=== PATIENT | female | born 1970 | race Caucasian/White ===

== ENCOUNTER 2017-11-23 10:58 | Emergency (ER) | payer MEDICAID, OTHER ==
[2017-11-23 10:58] VITALS: BMI 27.3
[2017-11-23 11:20] VITALS: TEMP 99.1; O2SAT 99
[2017-11-23 11:40] LABS: HCG,QUALITATIVE URINE NEGATIVE (NEGATIVE)
[2017-11-23 11:43] LABS: SQUAMOUS EPITHIAL 3 /hpf (0-5); URINE BACTERIA RARE (<OCC); URINE BILIRUBIN NEGATIVE (NEGATIVE); URINE BLOOD 2+ (NEGATIVE); URINE CLARITY Hazy (Clear); URINE COLOR Yellow (YELLOW); URINE GLUCOSE (UA) NORMAL (Normal); URINE LEUKOCYTE ESTERASE 3+ Leu/uL (Negative); URINE PROTEIN 1+ mg/dL (NEGATIVE); URINE UROBILINOGEN NORMAL mg/dL (0.2-1.0); WBC CLUMPS FEW /hpf
--- NOTE | 2017-11-23 12:21 | CT ---
Date of service: 11/23/2017 PROCEDURE: CT Abdomen and Pelvis. HISTORY: RIGHT FLANK PAIN R/O KIDNEY STONE COMPARISON: No prior study available for comparison TECHNIQUE: Contiguous axial images of the abdomen and pelvis.. Coronal and Sagittal reformats generated. Radiation dose: Total exam DLP = 495.03 mGy-cm. This CT exam was performed using one or more of the following dose reduction techniques: Automated exposure control, adjustment of the mA and/or kV according to patient size, and/or use of iterative reconstruction technique. FINDINGS: LOWER THORAX: Small calcified granuloma right posterior sulcus. Some minor linear scarring changes also seen in the left lung base and lingular region. Minor scarring right middle lobe region as well.. No evidence of effusion or basilar pneumothorax. Heart size is within range of normal. No significant pericardial effusion. LIVER: Liver exhibits relatively normal size measuring approximately 17 cm in CC dimension. Moderate fatty hepatic infiltration. No obvious hepatic mass collection or calcification seen on this noncontrast exam.. Note is made of a small elliptical shaped ring-like calcification abutting the inferomedial surface of the right lobe liver of uncertain etiology. This could represent a small calcified lymph node or phlebolith. GALLBLADDER AND BILE DUCTS: Gallbladder is physiologically distended. No evidence of intraluminal gallbladder calculi. PANCREAS: The pancreas appears slightly atrophic in appearance. No obvious mass. No ductal dilatation. SPLEEN: Unremarkable. No splenomegaly. ADRENALS: Unremarkable. KIDNEYS AND URETERS: Kidneys demonstrate relatively symmetric size. The. There is mild on prominence of the right renal pelvis and right ureter however no definitive evidence of nephrolithiasis or an intraluminal ureteral calculi seen. Rule out recently passed calculus or possibly UTI as there is some slight prominence of the urothelium in the renal pelvis and proximal right ureter. BLADDER: Urinary bladder is incompletely distended which presumably in part accounts for thick-walled appearance however UTI/cystitis must be considered. Clinical correlation with urinalysis recommended.. REPRODUCTIVE: Cervix is bulky in appearance with a rounded area of low attenuation. Recommend follow-up scenic artist consultation and Pap smear follow-up to exclude the possibility of a underlying cervical lesion. There is a relatively large approximately 4.0 x 3.2 cm left adnexal cyst. APPENDIX: Normal appendix best seen on axial image number one hundred eleven-131. BOWEL: Evaluation of the bowel is limited due to the lack of oral contrast material. The stomach is incompletely distended with food debris liquid and air. Visualized loops of small bowel exhibit normal contour and caliber. No evidence of acute mechanical small bowel obstruction. Stool and air seen throughout most of the discs cecum at ascending and proximal proximal-mid transverse colon. The remainder of the colon is relatively collapsed. PERITONEUM: Unremarkable. No fluid collection. No free air. LYMPH NODES: Unremarkable. No enlarged lymph nodes. VASCULATURE: Unremarkable. No aortic aneurysm. BONES: Mild multilevel degenerative spondylosis of the lower thoracic and lumbar spine. There are no acute compression fractures. No definitive lytic or blastic lesions. OTHER FINDINGS: None. IMPRESSION: No evidence of nephrolithiasis however there is mild dilatation of the right renal pelvis and proximal/mid right ureter with slight thickening of the urothelium in the renal pelvis and proximal ureter.. There is also minimal thickening of the urinary bladder which could be due to incomplete distention however UTI cystitis and/or ascending UTI must be considered. Large left renal cyst. The cervix is bulky in appearance with a poorly defined rounded area of low attenuation. Recommend follow-up scenic artist consultation and a Pap smear to exclude the possibility of cervical carcinoma. Moderate to significant fatty hepatic infiltration. The no evidence of cholelithiasis
[2017-11-23] MEDS ORDERED: Tmp-Smz 800 mg-160 mg DS Tab PO STA (12:53)
[2017-11-23] MEDS ORDERED: Tmp-Smz 800 mg-160 mg DS Tab ONE (13:00)
--- NOTE | 2017-11-23 13:00 | C.PDOC ---
History Of Present Illness 47 year old female presents to ED complaining of right flank pain. Patient reports pain travels from right back down to her right pubic area for the past three days. Patient also complains of dysuria and subjective fever. Denies cough, shortness of breath, nausea, vomiting, diarrhea, weakness, numbness. Time Seen by Provider: 11/23/17 11:24 Chief Complaint (Nursing): Back Pain History Per: Patient History/Exam Limitations: no limitations Onset/Duration Of Symptoms: Days Current Symptoms Are (Timing): Still Present Past Medical History Reviewed: Historical Data, Nursing Documentation, Vital Signs Vital Signs: Last Vital Signs Temp 99.1 F 11/23/17 11:16 Pulse 102 H 11/23/17 11:16 Resp 20 11/23/17 11:16 BP 122/80 11/23/17 11:16 Pulse Ox 99 11/23/17 11:16 - Medical History PMH: Anemia, Diabetes, HTN, Hypercholesterolemia Surgical History: No Surg Hx - [facility] Procedures APPLICATION OF SPLINT (08/03/12) DELIVERY OF PRODUCTS OF CONCEPTION, EXTERNAL APPROACH (07/07/15) Family History: States: No Known Family Hx - Social History Hx Tobacco Use: No Hx Alcohol Use: No Hx Substance Use: No - Immunization History Hx Tetanus Toxoid Vaccination: No Hx Influenza Vaccination: Yes (09/2017) Hx Pneumococcal Vaccination: No Review Of Systems Except As Marked, All Systems Reviewed And Found Negative. Constitutional: Positive for: Fever Respiratory: Negative for: Cough, Shortness of Breath Gastrointestinal: Negative for: Nausea, Vomiting, Diarrhea Genitourinary: Positive for: Dysuria Musculoskeletal: Positive for: Back Pain (Right back pain that radiates to right pubic area.) Neurological: Negative for: Weakness, Numbness Physical Exam - Physical Exam Appears: Non-toxic, No Acute Distress Skin: Warm, Dry Head: Atraumatic, Normacephalic Eye(s): bilateral: PERRL, EOMI Ear(s): Bilateral: Normal Nose: Normal Lymphatic: Normal Exam Chest: Symmetrical, No Deformity Cardiovascular: Rhythm Regular Respiratory: Normal Breath Sounds Gastrointestinal/Abdominal: Normal Exam Back: CVA Tenderness (Rigth CVa tenderneess.), Other (Right flank pain, right suprapubic pain) Extremity: Normal ROM Neurological/Psych: Oriented x3, Normal Speech, Normal Motor, Normal Sensation ED Course And Treatment O2 Sat by Pulse Oximetry: 99 (RA) Pulse Ox Interpretation: Normal - Other Rad CT abd/pelvis X-Ray: Interpreted by Me, Viewed By Me Interpretation: FINDINGS: LOWER THORAX: Small calcified granuloma right posterior sulcus. Some minor linear scarring changes also seen in the left lung base and lingular region. Minor scarring right middle lobe region as well.. No evidence of effusion or basilar pneumothorax. Heart size is within range of normal. No significant pericardial effusion. LIVER: Liver exhibits relatively normal size measuring approximately 17 cm in CC dimension. Moderate fatty hepatic infiltration. No obvious hepatic mass collection or calcification seen on this noncontrast exam.. Note is made of a small elliptical shaped ring-like calcification abutting the inferomedial surface of the right lobe liver of uncertain etiology. This could represent a small calcified lymph node or phlebolith. GALLBLADDER AND BILE DUCTS: Gallbladder is physiologically distended. No evidence of intraluminal gallbladder calculi. PANCREAS: The pancreas appears slightly atrophic in appearance. No obvious mass. No ductal dilatation. SPLEEN: Unremarkable. No splenomegaly. ADRENALS: Unremarkable. KIDNEYS AND URETERS: Kidneys demonstrate relatively symmetric size. The. There is mild on prominence of the right renal pelvis and right ureter however no definitive evidence of nephrolithiasis or an intraluminal ureteral calculi s een. Rule out recently passed calculus or possibly UTI as there is some slight prominence of the urothelium in the renal pelvis and proximal right ureter. BLADDER: Urinary bladder is incompletely distended which presumably in part accounts for thick-walled appearance however UTI/cystitis must be considered. Clinical correlation with urinalysis recommended.. REPRODUCTIVE: Cervix is bulky in appearance with a rounded area of low attenuation. Recommend follow-up russian language instructor consultation and Pap smear follow-up to exclude the possibility of a underlying cervical lesion. There is a relatively large approximately 4.0 x 3.2 cm left adnexal cyst. APPENDIX: Normal appendix best seen on axial image number one hundred eleven-131. BOWEL: Evaluation of the bowel is limited due to the lack of oral contrast material. The stomach is incompletely distended with food debris liquid and air. Visualized loops of small bowel exhibit normal contour and caliber. No evidence of acute mechanical small bowel obstruction. Stool and air seen throughout most of the discs cecum at ascending and proximal proximal-mid transverse colon. The remainder of the colon is relatively collapsed. PERITONEUM: Unremarkable. No fluid collection. No free air. LYMPH NODES: Unremarkable. No enlarged lymph nodes. VASCULATURE: Unremarkable. No aortic aneurysm. BONES: Mild multilevel degenerative spondylosis of the lower thoracic and lumbar spine. There are no acute compression fractures. No definitive lytic or blastic lesions. OTHER FINDINGS: None. IMPRESSION: No evidence of nephrolithiasis however there is mild dilatation of the right renal pelvis and proximal/mid right ureter with slight thickening of the urothelium in the renal pelvis and proximal ureter.. There is also minimal thickening of the urinary bladder which could be due to incomplete distention however UTI cystitis and/or ascending UTI must be considered. Large left renal cyst. The cervix is bulky in appearance with a poorly defined rounded area of low attenuation. Recommend follow-up russian language instructor consultation and a Pap smear to exclude the possibility of cervical carcinoma. Moderate to significant fatty hepatic infiltration. The no evidence of cholelithiasis Reassessment Condition: Improved Medical Decision Making Medical Decision Making: Plan: * CT abdomen/pelvis * Bactrim * Pyridium * Tylenol * Labs * Urinalysis: positive for UTI Disposition Counseled Patient/Family Regarding: Studies Performed, Diagnosis, Need For Followup, Rx Given - Disposition Referrals: Dino Richardson MD [Staff Provider] - Chris Robins [Staff Provider] - Disposition: HOME/ ROUTINE Disposition Time: 12:54 Condition: STABLE Additional Instructions: DRINK PLENTY OF WATER AND CRANBERRY JUICE. FOLLOW UP WITH PMD ON SATURDAY. URINE CULTURE WAS SENT AND PENDING. FOLLOW UP WITH HOME ENERGY AUDITOR FOR PAP SMEAR TO R/O POSSIBILITY OF UNDERLYING CERVICAL LESION AND FOLLOW UP ON LEFT ADNEXAL CYST. FOLLOW UP WITH UROLOGIST WELL. IF SYMPTOMS GET WORSE OR ANY NEW CONCERNING SYMPTOMS DEVELOP RETURN TO ED. Prescriptions: Sulfamethoxazole/Trimethoprim [Bactrim DS 800 mg-160 mg] 1 tab PO BID 7 Days #14 tab Phenazopyridine [Pyridium] 1 tab PO TID PRN #6 tab PRN Reason: Pain, Moderate (4-7) Instructions: Urinary Tract Infections in Adults Forms: [facility] (Sinhala), General Discharge Instructions - Clinical Impression Clinical Impression: Urinary tract infection, Renal cyst, Adnexal cyst - PA / HOTEL SERVER / Resident Statement MD/DO has reviewed & agrees with the documentation as recorded. - Scribe Statement The provider has reviewed the documentation as recorded by the Scribe Sahib John All medical record entries made by the Tory were at my direction and personally dictated by me. I have reviewed the chart and agree that the record accurately reflects my personal performance of the history, physical exam, medical decision making, and the department course for this patient. I have also personally directed, reviewed, and agree with the discharge instructions and disposition.
[2017-11-23 13:08] VITALS: BP 122/74; PULSE 85; RESP 18
== END 2017-11-23 13:12 | disposition home or self-care (01) ==
LOC: C.ER 10:58
DX: N39.0 Urinary tract infection, site not specified (principal); N28.1 Cyst of kidney, acquired; N85.8 Other specified noninflammatory disorders of uterus